=== PATIENT | female | born 1955 | race Two or more races ===

== ENCOUNTER 2022-06-23 04:23 | Inpatient (IN) | payer MEDICARE, MEDICAID ==
[~2022-06-23] VITALS: Ht 144.8 cm; Wt 125.6 kg
[2022-06-23] MEDS ORDERED: MORPHINE SULFATE 4 MG/ML CPJ (NOT FOR IM USE) IV ONE (05:30)
[2022-06-23] MEDS ORDERED: ONDANSETRON HCL 4MG/2ML INJ IV ONE (05:30)
[2022-06-23 06:21] LABS: CHLORIDE 100 mEq/L (98-107)
[2022-06-23 06:38] LABS: HEMATOCRIT. 44.9 % (36.0-48.0); HEMOGLOBIN. 14.2 g/dL (12.0-16.0); MEAN CORPUSCULAR HEMOGLOBIN 26.9 pg (28.0-32.0); MEAN CORPUSCULAR VOLUME 84.9 fL (81.0-99.0); PLATELET 315 x1000/uL (130-400); RED BLOOD CELL COUNT 5.29 mill/uL (4.2-5.4)
[2022-06-23 06:42] LABS: CLARITY URINE CLOUDY (CLEAR); COLOR URINE YELLOW (YELLOW); KETONES URINE NEGATIVE (NEGATIVE); LEUKOCYTE ESTERASE URINE NEGATIVE (NEGATIVE); NITRITE URINE NEGATIVE (NEGATIVE); OCCULT BLOOD URINE NEGATIVE (NEGATIVE); PROTEIN URINE 1+ (NEGATIVE); SPECIFIC GRAVITY URINE 1.021 (1.005-1.030); UROBILINOGEN URINE 0.2 E.U./dL (0.2-1.0)
[2022-06-23 07:07] LABS: PLATELET ESTIMATE NORMAL
[2022-06-23] MEDS ORDERED: CEFTRIAXONE 1 G PREMIX 50 ML IV ONE (07:30)
[2022-06-23] MEDS ORDERED: ACETAMINOPHEN 325MG TABLET PO PRN (11:00)
[2022-06-23] MEDS ORDERED: DEXTROSE 50% WATER 50ML SYRINGE IV PRN (11:00)
[2022-06-23] MEDS ORDERED: DOCUSATE SODIUM 100MG CAPSULE PO PRN (11:00)
[2022-06-23] MEDS ORDERED: ONDANSETRON HCL 4MG/2ML INJ IV PRN (11:00)
[2022-06-23] MEDS ORDERED: ZOLPIDEM TARTRATE 5MG TABLET PO PRN (11:00)
[2022-06-23] MEDS ORDERED: MAGNESIUM/ALUMINUM HYDROXIDE/SIMETHICONE 30ML UDC PO PRN (11:00)
[2022-06-23] MEDS ORDERED: PIPERACILLIN/TAZ 3.375G PREMIX 50 ML IV SCH ×3 (11:00→22:00)
[2022-06-23] MEDS ORDERED: IPRATROPIUM/ALBUTEROL 0.5-3(2.5)MG/3ML NEB NEB PRN (11:00)
[2022-06-23] MEDS ORDERED: ENOXAPARIN 40MG/0.4ML SYR SUBCUT SCH (11:00)
[2022-06-23] MEDS ORDERED: GUAIFENESIN 200MG/10ML SUGAR FREE UDC PO PRN (11:00)
[2022-06-23] MEDS ORDERED: NITROGLYCERIN 0.4MG TABLET SL SL PRN (11:00)
[2022-06-23] MEDS ORDERED: CLONIDINE 0.1MG TABLET PO PRN (11:00)
[2022-06-23] MEDS ORDERED: ONDANSETRON HCL 4MG/2ML INJ ONE (11:37)
[2022-06-23] MEDS: AMLODIPINE 10MG TABLET PO SCH (11:49)
[2022-06-23] MEDS: KETOROLAC 15MG/ML VIAL IV PRN (12:41)
[2022-06-23] MEDS ORDERED: VANCOMYCIN 1G PREMIX 200 ML IV SCH (12:45)
[2022-06-23 13:57] LABS: *AMPHETAMINES SCREEN URINE NEGATIVE (NEGATIVE); *BARBITURATES SCREEN URINE NEGATIVE (NEGATIVE); *BENZODIAZEPINES SCREEN URINE NEGATIVE (NEGATIVE); *COCAINE SCREEN URINE NEGATIVE (NEGATIVE); CANNABINOID URINE SCREEN NEGATIVE (NEGATIVE); METHADONE URINE SCREEN NEGATIVE (NEGATIVE); OPIATES URINE SCREEN NEGATIVE (NEGATIVE); PHENCYCLIDINE URINE SCREEN NEGATIVE (NEGATIVE)
[2022-06-23 14:23] LABS: T4 FREE 1.01 ng/dL (0.76-1.46)
[2022-06-23 15:07] LABS: VITAMIN B12 SERUM 610 pg/mL (211-911)
[2022-06-23 15:09] LABS: FOLIC ACID (FOLATE) SERUM > 20.00 ng/mL (>5.38)
[2022-06-23] MEDS: ENOXAPARIN 40MG/0.4ML SYR SUBCUT SCH ×2 (22:48→23:00)
[2022-06-23] MEDS: BLOOD SUGAR DIAGNOSTIC STRIP TEST SCH ×3 (23:22→23:34)
[2022-06-23] MEDS: INSULIN LISPRO 100 UNITS/ML SUBCUT SCH ×3 (23:23→23:33)
[2022-06-23] MEDS: NYSTATIN POWDER 15GM TOP SCH ×2 (23:30→23:32)
[2022-06-23] MEDS ORDERED: VANCOMYCIN 1G PREMIX 200 ML IV NR (23:30)
[2022-06-23] MEDS: FAMOTIDINE 20MG TABLET PO SCH (23:31)
[2022-06-23] MEDS: ASCORBIC ACID 500 MG TABLET PO SCH (23:32)
[2022-06-24 02:19] VITALS: BP 117/69
[2022-06-24 05:05] LABS: HEMATOCRIT. 43.4 % (36.0-48.0); HEMOGLOBIN. 13.5 g/dL (12.0-16.0); MEAN CORPUSCULAR VOLUME 86.6 fL (81.0-99.0); MEAN PLATELET VOLUME 9.9 fl (7.4-10.4); PLATELET 245 x1000/uL (130-400); RED BLOOD CELL COUNT 5.01 mill/uL (4.2-5.4); RED CELL DISTRIBUTION WIDTH 17.1 % (11.6-14.6)
[2022-06-24 05:13] LABS: CHLORIDE 103 mEq/L (98-107)
[2022-06-24 05:30] LABS: CREATINE KINASE 53 IU/L (26-192); CREATINE KINASE MB FRACTION 1.9 ng/mL (0.5-3.6); PHOSPHORUS 5.2 mg/dL (2.5-4.9)
[2022-06-24] MEDS: INSULIN LISPRO 100 UNITS/ML SUBCUT SCH ×4 (07:50→21:00)
[2022-06-24 08:00] VITALS: BP 119/64
[2022-06-24] MEDS: BLOOD SUGAR DIAGNOSTIC STRIP TEST SCH ×4 (08:09→21:00)
[2022-06-24] MEDS ORDERED: PNEUMOCOCCAL 23-VAL P-SAC VAC 0.5 ML IM ONE (09:00)
[2022-06-24] MEDS ORDERED: INFLUENZA VACCINE 05/PF 0.5 ML SYRINGE IM ONE (09:00)
[2022-06-24] MEDS: FAMOTIDINE 20MG TABLET PO SCH ×2 (10:13→22:15)
[2022-06-24] MEDS: ZINC SULFATE 220 MG ( 50 ) CAPSULE PO SCH (10:13)
[2022-06-24] MEDS: PIPERACILLIN/TAZOBACTAM 3.375G in DEXT 5% WATER 50ML IV SCH ×3 (10:13→22:23)
[2022-06-24] MEDS: AMLODIPINE 10MG TABLET PO SCH (10:14)
[2022-06-24] MEDS: ASCORBIC ACID 500 MG TABLET PO SCH ×2 (10:14→22:19)
[2022-06-24] MEDS: ENOXAPARIN 40MG/0.4ML SYR SUBCUT SCH ×2 (10:15→22:18)
[2022-06-24 12:00] VITALS: BP 119/63
[2022-06-24 14:28] LABS: PLATELET ESTIMATE NORMAL
[2022-06-24 16:00] VITALS: BP 118/59
[2022-06-24] MEDS: ACETAMINOPHEN 325MG TABLET PO PRN ×2 (16:38→22:14)
[2022-06-24] MEDS: NYSTATIN POWDER 15GM TOP SCH ×2 (19:12→19:13)
[2022-06-24 20:00] VITALS: BP 129/64
[2022-06-24] MEDS ORDERED: VANCOMYCIN 1500MG in DEXTROSE 5% WATER 250ML IV SCH ×4 (23:00)
[2022-06-25] VITALS: BP 125/60
[2022-06-25 04:00] VITALS: BP 120/62
[2022-06-25] MEDS: KETOROLAC 15MG/ML VIAL IV PRN (04:05)
[2022-06-25] MEDS: INSULIN LISPRO 100 UNITS/ML SUBCUT SCH ×4 (07:50→21:00)
[2022-06-25] MEDS: BLOOD SUGAR DIAGNOSTIC STRIP TEST SCH ×4 (07:54→21:14)
[2022-06-25] MEDS: PIPERACILLIN/TAZOBACTAM 3.375G in DEXT 5% WATER 50ML IV SCH ×3 (07:54→21:07)
[2022-06-25 08:00] VITALS: BP 153/78
[2022-06-25] MEDS: FAMOTIDINE 20MG TABLET PO SCH ×2 (08:39→21:00)
[2022-06-25] MEDS: ZINC SULFATE 220 MG ( 50 ) CAPSULE PO SCH (08:39)
[2022-06-25] MEDS: AMLODIPINE 10MG TABLET PO SCH (08:39)
[2022-06-25] MEDS: ENOXAPARIN 40MG/0.4ML SYR SUBCUT SCH ×2 (08:39→21:17)
[2022-06-25] MEDS: ASCORBIC ACID 500 MG TABLET PO SCH ×2 (08:39→21:00)
[2022-06-25 12:00] VITALS: BP 111/89
[2022-06-25] MEDS: NYSTATIN POWDER 15GM TOP SCH ×2 (12:47→17:54)
[2022-06-25 16:00] VITALS: BP 157/66
[2022-06-25 20:00] VITALS: BP 160/79
[2022-06-25] MEDS: ACETAMINOPHEN 325MG TABLET PO PRN (21:07)
[2022-06-26] VITALS: BP 131/72
[2022-06-26 04:00] VITALS: BP 145/68
[2022-06-26] MEDS: PIPERACILLIN/TAZOBACTAM 3.375G in DEXT 5% WATER 50ML IV SCH ×3 (05:43→22:13)
[2022-06-26] MEDS: INSULIN LISPRO 100 UNITS/ML SUBCUT SCH ×4 (05:43→20:52)
[2022-06-26] MEDS: BLOOD SUGAR DIAGNOSTIC STRIP TEST SCH ×4 (05:43→20:45)
[2022-06-26] MEDS: ACETAMINOPHEN 325MG TABLET PO PRN ×2 (05:44→09:00)
[2022-06-26 08:00] VITALS: BP 143/60
[2022-06-26] MEDS: ASCORBIC ACID 500 MG TABLET PO SCH ×2 (09:00→20:35)
[2022-06-26] MEDS: AMLODIPINE 10MG TABLET PO SCH (09:00)
[2022-06-26] MEDS: ZINC SULFATE 220 MG ( 50 ) CAPSULE PO SCH (09:00)
[2022-06-26] MEDS: ENOXAPARIN 40MG/0.4ML SYR SUBCUT SCH ×2 (09:00→20:37)
[2022-06-26] MEDS: FAMOTIDINE 20MG TABLET PO SCH ×2 (09:01→20:35)
[2022-06-26] MEDS: NYSTATIN POWDER 15GM TOP SCH ×3 (09:06→17:31)
[2022-06-26 12:00] VITALS: BP 159/90
[2022-06-26 16:00] VITALS: BP 167/81
[2022-06-26 20:00] VITALS: BP 149/71
[2022-06-27] VITALS: BP 150/75
[2022-06-27] MEDS: ACETAMINOPHEN 325MG TABLET PO PRN ×2 (00:40→10:12)
[2022-06-27 04:00] VITALS: BP 150/69
[2022-06-27] MEDS: PIPERACILLIN/TAZOBACTAM 3.375G in DEXT 5% WATER 50ML IV SCH (06:00)
[2022-06-27] MEDS: BLOOD SUGAR DIAGNOSTIC STRIP TEST SCH ×2 (07:20→12:20)
[2022-06-27] MEDS: INSULIN LISPRO 100 UNITS/ML SUBCUT SCH ×2 (07:50→12:50)
[2022-06-27 08:00] VITALS: BP 178/81
[2022-06-27] MEDS: FAMOTIDINE 20MG TABLET PO SCH (09:00)
[2022-06-27] MEDS: ENOXAPARIN 40MG/0.4ML SYR SUBCUT SCH (09:00)
[2022-06-27] MEDS: NYSTATIN POWDER 15GM TOP SCH ×2 (09:00→13:42)
[2022-06-27] MEDS: ASCORBIC ACID 500 MG TABLET PO SCH (09:00)
[2022-06-27] MEDS: ZINC SULFATE 220 MG ( 50 ) CAPSULE PO SCH (10:11)
[2022-06-27] MEDS: AMLODIPINE 10MG TABLET PO SCH (10:12)
== END 2022-06-27 14:00 | disposition home health service (06) | DRG 872 ==
LOC: ER 04:23 → 6EST 07:29 → EDBEDREQTM 07:32 → EDBEDREQ 07:32 → SUPCPDRO 11:00
PROVIDERS: ADMIT Internal Medicine; ATTEND Internal Medicine
DX: A41.9 Sepsis, unspecified organism (principal); K56.7 Ileus, unspecified; E44.1 Mild protein-calorie malnutrition; L03.311 Cellulitis of abdominal wall; E87.1 Hypo-osmolality and hyponatremia; Z68.43 Body mass index [BMI] 50.0-59.9, adult; E11.65 Type 2 diabetes mellitus with hyperglycemia; E66.01 Morbid (severe) obesity due to excess calories; E88.09 Other disorders of plasma-protein metabolism, not elsewhere classified; I11.0 Hypertensive heart disease with heart failure; J44.9 Chronic obstructive pulmonary disease, unspecified; I50.9 Heart failure, unspecified; Z90.710 Acquired absence of both cervix and uterus; Z90.49 Acquired absence of other specified parts of digestive tract; Z99.81 Dependence on supplemental oxygen; B37.9 Candidiasis, unspecified
CPT/HCPCS: 36415; 71045; 74176; 80053; 80305; 81003; 82550; 82553; 82607; 82746; 82962; 83036; 83540; 83550; 83735; 83880; 84100; 84439; 84443; 84484; 85025; 93005; 93306; 93970; 97162; 97165; 99285; J0696; J1650; J1815; J1885; J2270; J2405; J2543; J3370; J7060